=== PATIENT | female | born 2000 | race Hispanic/Latino ===

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

== ENCOUNTER 2023-01-03 16:07 | Emergency (ER) | payer MEDICAID ==
[~2023-01-03] VITALS: Ht 162.6 cm; Wt 59.0 kg
[2023-01-03 16:09] VITALS: BP 133/66
== END 2023-01-03 17:16 | disposition home or self-care (01) ==
LOC: EDH 16:07
DX: J30.9 Allergic rhinitis, unspecified (principal)
CPT/HCPCS: 99281

== ENCOUNTER 2023-07-21 01:16 | Emergency (ER) | payer MEDICAID, OTHER ==
[~2023-07-21] VITALS: Ht 162.6 cm; Wt 54.9 kg
[2023-07-21 01:17] VITALS: BP 106/68; PULSE 69; RESP 16
== END 2023-07-21 03:33 | disposition left against medical advice (07) ==
LOC: EDH 01:16
DX: R07.81 Pleurodynia (principal); Z53.21 Procedure and treatment not carried out due to patient leaving prior to being seen by health care provider

== ENCOUNTER 2024-07-27 09:48 | Emergency (ER) | payer BC ==
[~2024-07-27] VITALS: Ht 162.6 cm; Wt 52.2 kg
[2024-07-27] MEDS: LIDOCAINE HCL 1% 20 ML VIAL ONE (10:32)
[2024-07-27 11:27] VITALS: BP 105/73; PULSE 76; RESP 18; TEMP 98.6; O2SAT 99
[2024-07-27] MEDS ORDERED: CEPH500B PO (11:47)
[2024-07-27] MEDS: teTANUS/diphthERIA TOXOID [ADULT] 0.5 ML VIAL IM ONE (12:05)
== END 2024-07-27 12:07 | disposition home or self-care (01) ==
LOC: EDH 09:48
DX: S51.812A Laceration without foreign body of left forearm, initial encounter (principal); W26.9XXA Contact with unspecified sharp object(s), initial encounter; Y93.89 Activity, other specified; Y92.89 Other specified places as the place of occurrence of the external cause; Y99.8 Other external cause status
CPT/HCPCS: 12001; 90471; 90714

== ENCOUNTER 2024-11-22 23:34 | Emergency (ER) | payer BC ==
[~2024-11-22] VITALS: Ht 162.6 cm; Wt 50.3 kg
[~2024-11-22 23:34] MED LIST changes: +CEPH500B PO
--- NOTE | 2024-11-23 00:20 | ERN ---
ED Note History of Present Illness Stated Complaint: LEFT EYEBROW LACERATION Chief Complaint: Laceration/Avulsion Time Seen by MD: 23:50 Time Seen by Midlevel: 23:50 Dictation: 24-year-old female presents to the emergency department due to reported having sustained a laceration to the left eyebrow 2 hours prior to arrival. Patient states that she was running when another pair posterior causing her to bump her head against a solid surface. She denies having sustained any loss of consciousness. Patient states that her level of discomfort is a 1/10. She presents with a laceration to the left eyebrow that if nonbleeding. Upon i nitial evaluation, the patient presents with a normal neurological examination. Allergies: Coded Allergies: No Known Drug Allergies (Unverified Allergy, Unknown, 11/01/20) Home Meds Active Scripts Cephalexin Monohydrate (Keflex) 500 Mg Cap, 500 MG PO BID for 7 Days, #14 CAP Prov:BEN HIGH MD 07/27/24 Acetaminophen (Tylenol) 325 Mg Capsule, 650 MG PO QID, #50 CAP Prov:SHANE NIEVES 03/28/21 Past Medical History Past Medical History: No Pertinent History Surgical History: None PSYCH History: no pertinent psych hx Family History: Negative Social History: Negative LMP: Nov 06, 2024 RN Note Reviewed/Agreed w/PFSH: Yes Review of System Dictation Skin: Laceration left eyebrow Initial Vital Sign VS Vital Signs Date Time Temp Pulse Resp B/P (MAP) Pulse Ox O2 Delivery O2 Flow Rate FiO2 11/22/24 23:37 98.4 87 18 110/80 99 Room Air 0 11/23/24 00:31 21 Physical Exam Dictation General: awake, alert, NAD Head/Face: Normocephalic, atraumatic Eyes: PERRL, EOMI ENT: Oral mucosa moist Neck: Trachea midline, supple Cardiovascular: RRR, no edema Respiratory: Symmetrical, non-labored Abdomen: Soft, non-tender, non-distended, no guarding. Skin: Warm, dry, good turgor, no rash, 1.5 cm laceration noted to the left eyebrow that is linear and subcutaneous MS/Extremity: Pulses equal, no cyanosis, neurovascular intact, FROM Neuro: COAx4, GCS 15, steady gait, Psych: Normal behavior, mood, and affect normal ED Course ED Course Orders Procedure Category Date Status Time Acetaminophen 500mg PHA 11/23/24 Complete Tab (Tylenol 500mg T 00:00 L.E.T. Gel 3ml Syg PHA 11/23/24 Complete (L.E.T. Gel 3ml Syg) 00:00 Dermabond (Dermabond) PHA 11/23/24 Complete 01:17 Dermabond (Dermabond) PHA 11/23/24 In Process 01:30 Current Medications Medications (Trade) Dose Ordered Sig/Valentin Route PRN Reason Start Time Stop Time Status Last Admin Dose Admin Acetaminophen (TYLenol 500MG TAB) 1,000 mg ONCE ONCE PO 11/23/24 00:00 11/23/24 00:01 DC 11/23/24 00:43 Lidocaine/ Epinephrine (L.e.t. Gel 3ml Syg) 3 ml ONCE ONCE TP 11/23/24 00:00 11/23/24 00:01 DC 11/23/24 00:44 Octyl Cyanoacrylate (Dermabond) 1 each ONCE TP 11/23/24 01:30 12/23/24 01:29 Octyl Cyanoacrylate (Dermabond) 1 each STK-MED ONCE TP 11/23/24 01:17 11/23/24 01:17 DC Vital Signs Date Time Temp Pulse Resp B/P (MAP) Pulse Ox O2 Delivery O2 Flow Rate FiO2 11/23/24 00:31 98.1 78 18 114/68 98 Room Air* 0 21 11/22/24 23:37 98.4 87 18 110/80 99 Room Air 0 Medical Decision Making MDM MDM: Differential diagnosis: Facial laceration, head injury, facial contusion. Rationale: Tests considered and ordered secondary to shared decision making include: Previous outside records reviewed: Old ER visits. Risk of complication and/or morbidity or mortality of patient management: None Medications-Per medication reconciliation Need for hospitalization: Patient does not meet criteria for hospitalization. Need for emergency major/minor surgery: No There are no social concerns with this patient. Prescription drug management Prescriptions will include symptomatic care Patient's prior external medical records from other ER visits were reviewed by me as indicated. Prior testing and results from previous visits were reviewed. Prior tests were taken into account with medical decision making and resource utilization, independent historian/historians were used to obtain complete medical history. I independently interpreted the test that were performed, results were reviewed by me and considered findings on radiology if ordered. Medical management and examination interpretation discussions were had by me with other qualified healthcare professionals as indicated for the patient's care. Procedure Wound Location: face Wound Length (cm): 1 Wound's Depth, Shape: superficial Wound Explored: clean Betadine Prep?: No Wound Repaired With: Dermabond DX & DISP Disposition: Discharge Departure Impression: Primary Impression: Laceration of left eyebrow Condition: Stable Referrals: LYSSA SALEEM (PCP) Time of Disposition: 01:24 [facility] Nov 23, 2024 00:20
[2024-11-23 00:31] VITALS: BP 114/68; PULSE 78; RESP 18; TEMP 98; O2SAT 98
[2024-11-23] MEDS: acetaMINOPHEN 500 MG TABLET PO ONE (00:43)
[2024-11-23] MEDS: L.E.T. GEL 3ML SYG TP ONE (00:44)
[2024-11-23] MEDS: OCTYL 2-CYANOACRYLATE 1 EACH TP SCH (01:30)
[2024-11-23] MEDS: OCTYL 2-CYANOACRYLATE 1 EACH TP ONE (01:34)
== END 2024-11-23 01:42 | disposition home or self-care (01) ==
LOC: EDH 23:34
DX: S01.112A Laceration without foreign body of left eyelid and periocular area, initial encounter (principal); Z79.899 Other long term (current) drug therapy; W18.09XA Striking against other object with subsequent fall, initial encounter; Y93.89 Activity, other specified; Y92.89 Other specified places as the place of occurrence of the external cause; Y99.8 Other external cause status
CPT/HCPCS: 12011; 82948; 99282